=== PATIENT | female | born 1975 | race African-American/Black ===

== ENCOUNTER 2017-01-07 20:49 | Emergency (ER) | payer OTHER, MEDICAID ==
[2017-01-07] MEDS ORDERED: ACETAMINOPHEN 325 MG TABLET PO ONE (21:53)
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
[2017-01-07 22:53] LABS: APPEARANCE,URINE CLEAR; BILIRUBIN,URINE NEGATIVE (NEGATIVE); GLUCOSE, URINE NEGATIVE (NEGATIVE); KETONES,URINE NEGATIVE (NEGATIVE); LEUKOCYTE ESTERASE,URINE NEGATIVE (NEGATIVE); NITRITE,URINE NEGATIVE (NEGATIVE); PROTEIN,URINE NEGATIVE (NEGATIVE); URINE SPECIFIC GRAVITY 1.003; UROBILINOGEN,URINE NEGATIVE mg/dL (<2.0)
[2017-01-07] MEDS ORDERED: CYCLOBENZAPRINE HCL 10 MG TABLET PO ONE (23:59)
[2017-01-08 00:14] VITALS: BP 122/59
== END 2017-01-08 00:15 | disposition home or self-care (01) ==
LOC: ER 20:49
DX: M54.5 Low back pain (principal); O26.892 Other specified pregnancy related conditions, second trimester; Z3A.22 22 weeks gestation of pregnancy
CPT/HCPCS: 81001; 99283

== ENCOUNTER 2017-04-01 15:26 | Outpatient (CLI) | payer OTHER ==
[2017-04-01 16:41] LABS: APPEARANCE,URINE CLOUDY; BILIRUBIN,URINE NEGATIVE (NEGATIVE); GLUCOSE, URINE NEGATIVE (NEGATIVE); KETONES,URINE NEGATIVE (NEGATIVE); LEUKOCYTE ESTERASE,URINE NEGATIVE (NEGATIVE); NITRITE,URINE NEGATIVE (NEGATIVE); PROTEIN,URINE NEGATIVE (NEGATIVE)
[2017-04-01 16:59] LABS: URINE BARBITURATES SCREEN NEGATIVE; URINE METHADONE SCREEN NEGATIVE; URINE OPIATES LOW NEGATIVE; URINE PHENCYCLIDINE SCREEN NEGATIVE
--- NOTE | 2017-04-01 17:13 | Non Stress Test Report ---
Non Stress Test Datetime Report Generated by CPN: 04/01/2017 17:12 DEMOGRAPHIC EGA NST: 34.1 INDICATION Indication for Study: Ordered by Provider MONITORING Monitor Explained: Monitor Explained; Test Explained; Patient Verbalized Understanding Time on Monitor: 04/01/2017 15:48 Time off Monitor: 04/01/2017 17:02 NST Duration: 74 NST INTERVENTIONS NST Interventions: PO Hydration; Reposition Patient Physician Notified NST: Dr Garner BABY A: [id number] BABY A Movement : Present Contraction Frequency : irregular FHR Baseline : 140 Accelerations : 15X15 Decelerations : None Variability : Moderate 6-25bpm NST Review: Meets Criteria for Reactive NST NST Review and Verified By : CHERYL Littlejohn Results: Reactive NST REPORT Report Trigger: Send Report
== END 2017-04-01 17:10 | disposition home or self-care (01) ==
LOC: LC 15:26
PROVIDERS: ATTEND Student in an Organized Health Care Education/Training Program
PROC: 4A1HXCZ Monitoring of Products of Conception, Cardiac Rate, External Approach (ICD-10-PCS; principal; 2017-04-01)
DX: O21.0 Mild hyperemesis gravidarum (principal); Z3A.34 34 weeks gestation of pregnancy
CPT/HCPCS: 59025; 81001; 80307; G0480 ×2

== ENCOUNTER 2017-04-06 11:49 | Outpatient (CLI) | payer OTHER, MEDICAID | END 2017-04-06 12:46 | disposition home or self-care (01) | LOC: LC 11:49 | PROVIDERS: ATTEND Obstetrics & Gynecology | PROC: 4A1HXCZ Monitoring of Products of Conception, Cardiac Rate, External Approach (ICD-10-PCS; principal; 2017-04-06) | DX: O21.0 Mild hyperemesis gravidarum (principal); Z3A.34 34 weeks gestation of pregnancy | CPT/HCPCS: 59025 ==

== ENCOUNTER 2017-04-13 09:48 | Outpatient (CLI) | payer OTHER, MEDICAID ==
--- NOTE | 2017-04-13 10:05 | Non Stress Test Report ---
Non Stress Test Datetime Report Generated by CPN: 04/13/2017 10:04 DEMOGRAPHIC EGA NST: 34.6 INDICATION Indication for Study: Ordered by Provider; Other Indication for Study (NST) Other: AMA MONITORING Monitor Explained: Monitor Explained; Test Explained; Patient Verbalized Understanding Time on Monitor: 04/06/2017 12:10 Time off Monitor: 04/06/2017 12:33 NST Duration: 23 NST INTERVENTIONS NST Interventions: PO Hydration; Reposition Patient Physician Notified NST: Dr Ed BABY A: [id number] BABY A Movement : Present Contraction Frequency : none FHR Baseline : 135 Accelerations : 15X15 Decelerations : None Variability : Moderate 6-25bpm NST Review: Meets Criteria for Reactive NST NST Review and Verified By : V Monk RN NST Results: Reactive NST REPORT Report Trigger: Send Report
== END 2017-04-13 10:49 | disposition home or self-care (01) ==
LOC: LC 09:48
PROVIDERS: ATTEND Obstetrics & Gynecology
PROC: 4A1HXCZ Monitoring of Products of Conception, Cardiac Rate, External Approach (ICD-10-PCS; principal; 2017-04-13)
DX: O09.523 Supervision of elderly multigravida, third trimester (principal); Z3A.34 34 weeks gestation of pregnancy
CPT/HCPCS: 59025

== ENCOUNTER 2017-04-15 05:25 | Outpatient (CLI) | payer OTHER, MEDICAID ==
[2017-04-15 07:04] LABS: APPEARANCE,URINE CLEAR; BILIRUBIN,URINE NEGATIVE (NEGATIVE); GLUCOSE, URINE NEGATIVE (NEGATIVE); KETONES,URINE NEGATIVE (NEGATIVE); LEUKOCYTE ESTERASE,URINE NEGATIVE (NEGATIVE); NITRITE,URINE NEGATIVE (NEGATIVE); PROTEIN,URINE NEGATIVE (NEGATIVE)
[2017-04-15 07:18] LABS: URINE BARBITURATES SCREEN NEGATIVE; URINE METHADONE SCREEN NEGATIVE; URINE OPIATES LOW NEGATIVE; URINE PHENCYCLIDINE SCREEN NEGATIVE
[2017-04-15] MEDS ORDERED: HYDROXYZINE PAMOATE 50 MG CAPSULE ONE (07:55)
== END 2017-04-15 08:00 | disposition home or self-care (01) ==
LOC: LC 05:25
PROVIDERS: ATTEND Student in an Organized Health Care Education/Training Program
PROC: 4A1HXCZ Monitoring of Products of Conception, Cardiac Rate, External Approach (ICD-10-PCS; principal; 2017-04-15)
DX: O09.523 Supervision of elderly multigravida, third trimester (principal); Z3A.35 35 weeks gestation of pregnancy
CPT/HCPCS: 59025; 80307; 81001

== ENCOUNTER 2017-04-22 05:21 | Inpatient (IN) | payer OTHER, MEDICAID ==
[2017-04-22] MEDS ORDERED: MISOPROSTOL 0.2 MG TABLET ONE (05:30)
[2017-04-22] MEDS ORDERED: OXYTOCIN/NORMAL SALINE 20 UNIT/1,000 ML RTUINJ ONE (05:30)
[2017-04-22] MEDS ORDERED: LIDOCAINE 1% INJ-PF (10 MG/ML) 30 ML SDV ONE (05:30)
[2017-04-22] MEDS ORDERED: BENZOCAINE/MENTHOL AEROSOL SPRAY 56 ML TOP PRN (06:01)
[2017-04-22] MEDS ORDERED: MEASLES,MUMPS&RUBELLA VACC/PF 0.5 ML VIAL SUBCUT PRN (06:01)
[2017-04-22] MEDS ORDERED: DIBUCAINE 1% OINTMENT 28 GM TP PRN (06:01)
[2017-04-22] MEDS ORDERED: OXYTOCIN/NORMAL SALINE 20 UNIT/1,000 ML RTUINJ IV PRN (06:01)
[2017-04-22] MEDS ORDERED: ZOLPIDEM TARTRATE 5 MG TABLET PO PRN (06:01)
[2017-04-22] MEDS ORDERED: DIPH/PERTUSS(ACELL)/TETANUS VAC/PF 0.5 ML SYR (>=10YO) IM PRN (06:01)
[2017-04-22 06:19] LABS: ABSOLUTE BASOPHILS # (AUTO) 0.1 10^3/uL (0.0-0.2); ABSOLUTE LYMPHOCYTES (AUTO) 1.4 10^3/uL (0.5-4.7); ABSOLUTE MONOCYTES (AUTO) 0.5 10^3/uL (0.1-1.4); ABSOLUTE NEUT (AUTO) 6.4 10^3/uL (1.7-8.2); EOSINOPHILS % (AUTO) 0.2 % (0-6); HEMATOCRIT 33.6 % (36.0-47.0); HEMOGLOBIN 11.6 g/dL (12.0-15.5); HGB HCT DIFFERENCE 1.2; LYMPHOCYTES % (AUTO) 16.7 % (13-45); MEAN CORPUSCULAR HEMOGLOBIN 32.9 pg (27.0-33.4); MEAN CORPUSCULAR HGB CONC 34.7 g/dL (32.0-36.0); MEAN CORPUSCULAR VOLUME 95 fl (80-97); MONOCYTES % (AUTO) 6.1 % (3-13); RED BLOOD COUNT 3.54 10^6/uL (3.72-5.28); RED CELL DISTRIBUTION WIDTH 14.3 % (11.5-14.0); WHITE BLOOD COUNT 8.5 10^3/uL (4.0-10.5)
--- NOTE | 2017-04-22 07:14 | Delivery Summary ---
Del Sum A-C Datetime Report Generated by CPN: 04/22/2017 07:13 DELIVERY PERSONNEL DELIVERY PERSONNEL: [id number] Delivery Doctor:: Jessenia Rowley Nurse Is Manager Certified:: Ellie Dodd CNM Labor and Delivery Nurse:: Susan Mancia RNfiltering machine tender helper Nurse:: Chantelle Jane RN Nursery Nurse:: Elif Lopez RN Sole Leather Cutting Machine Operator/MILITARY TECHNOLOGY SPECIALIST: Bertha Newsome, ST MATERNAL INFORMATION Delivery Anesthesia: None Medications After Delivery: Pitocin Bolus-Please Comment Estimated Blood Loss (ml): 200 Maternal Complications: Precipitous Labor (<3hrs); Other Other Maternal Complications: AMA Provider Comments: Nurse control of precipitious delivery, Infant with spotaneous cry and respirations to warmer for peds evaluations, placenta delivered, appears intact 3 VC vagina and perinuem inspected, no laterations noted. Hemostatasis acheived with external fundal massge and IV pitocin, routine pp care. LABOR SUMMARY EDC: 05/12/2017 00:00 No. Babies in Womb: 1 Attempted: No Labor Anesthesia: None LABOR INFORMATION Reason for Induction: Not Applicable Onset of Labor: 04/22/2017 03:30 Complete Dilatation: 04/22/2017 05:23 Oxytocin: N/A Group B Beta Strep: Negative Antibiotics # of Doses: N/A Steroids Given: None Reason Steroids Not Administered: Not Applicable MEMBRANES Membranes Rupture Method: Spontaneous Rupture of Membranes: 04/22/2017 05:15 Length of Rupture (hr): 0.25 Amniotic Fluid Color: Clear Amniotic Fluid Amount: Moderate Amniotic Fluid Odor: Normal STAGES OF LABOR Stage 1 hr: 1 Stage 1 min: 53 Stage 2 hr: 0 Stage 2 min: 7 Stage 3 hr: 0 Stage 3 min: 5 Total Time in Labor hr: 2 Total Time in Labor min: 5 VAGINAL DELIVERY Episiotomy: None Laceration Extension: N/A Laceration Repair: Not Applicable Sponge Count Correct: N/A Sharps Count Correct: N/A CSECTION DELIVERY Primary Indication: N/A Secondary Indication: N/A CSection Incidence: N/A Labor: N/A Elective: N/A CSection Incision: N/A BABY A INFORMATION Delivery Date/Time: 04/22/2017 05:30 Method of Delivery: Vaginal Born in Route : No : N/A Forceps: N/A Vacuum Extraction: N/A Shoulder Dystocia : No PRESENTATION/POSITION BABY A Presentation: Cephalic Cephalic Presentation: Vertex Breech Presentation: N/A PLACENTA INFORMATION BABY A Placenta Delivery Time : 04/22/2017 05:35 Placenta Method of Delivery: Spontaneous Placenta Status: Delivered SCORES BABY A Heart Rate 1 min: >100 bpm Resp Effort 1 min: Slow, Irregular Reflex Irritability 1 min: Cough or Sneeze or Pulls Away Muscle Tone 1 min: Active Motion Color 1 min: Blue/Pale Resuscitation Effort 1 min: Tactile Stimulation SCORE 1 MIN: 7 Heart Rate 5 min: >100 bpm Resp Effort 5 min: Good Cry Reflex Irritability 5 min: Cough or Sneeze or Pulls Away Muscle Tone 5 min: Active Motion Color 5 min: Body [place], Extremities Blue SCORE 5 MIN: 9 INFORMATION BABY A Gestational Age at Delivery: 37.1 Gestational Status: Early Term- 37- 38.6 Weeks Outcome : Liveborn Condition : Stable Sex: Female WEIGHT/LENGTH BABY A Birthweight (gm): 2910 Weight (lb): 6 Weight (oz): 7 Length (in): 19.50 Length (cm): 49.53 CORD INFORMATION BABY A No. Cord Vessels: 3 Nuchal Cord : N/A Suction: None ASSESSMENT BABY A Infant Complications: None Physical Findings at Delivery: Within Normal Limits Skin to Skin: Yes Skin to Skin Time (min): 60 SIGNATURES Assignment: Jazmín Ward MD Signature: with User ID: Joy : with User ID: Joy
[2017-04-22] MEDS ORDERED: IBUPROFEN 800 MG TABLET ONE (07:43)
[2017-04-22] MEDS: IBUPROFEN 800 MG TABLET PO SCH ×2 (07:58→21:32)
--- NOTE | 2017-04-22 08:09 | Admission Physical ---
Datetime Report Generated by CPN: 04/22/2017 08:08 CURRENT ADMISSION Chief Complaint: Uterine Contractions Indication for Induction: Not Applicable Admit Plan: Admit to Unit; Initiate Labor Protocol ALLERGIES Medication Allergies: No Medication Allergies: No Known Allergies (04/06/2017) Medication Allergies: No Known Allergies (09/01/2012) Latex: No Latex Allergies Food Allergies: none Environmental Allergies: none OBSTETRICAL HISTORY EDC: 05/12/2017 00:00 : 4 Para: 3 Term: 3 : 0 SAB: 0 IAB: 0 Ectopic: 0 Livin Cesareans: 0 VBACs: 0 Multiple Births: 0 Gestational Diabetes: No Rh Sensitization: No Incompetent Cervix: No ARAM: No Infertility: No ART Treatment: No Uterine Anomaly: No IUGR: No Hx Previous C/S: No Macrosomia: No Hx Loss/Stillborn: No PIH: Yes Hx : No Placenta Previa/Abruption: No Depression/PP Depression: No PTL/PROM: No Post Hemorrhage: No Current Procedures: Ultrasound; NST Obstetrical History Comments: G1: 1994 G2: 1998 G3: 2008 G4: Current Pre-E SEE RECORDS Alcohol: No Marijuana : No Cocaine: No Other Illicit Drugs: No Cigarettes: Current Everyday Smoker. [id number] Cigarette Frequency: 5 - 10 per day Advised to Stop: Yes Cigarette Comments: Pack every 2-3 days MEDICAL HISTORY Diabetes: No Blood Transfusion: Yes Pulmonary Disease (Asthma, TB): No Breast Disease: No Hypertension: Yes Foster Care Social Worker Surgery: No Heart Disease: No Hosp/Surgery: Yes Autoimmune Disorder: No Anesthetic Complications: No Kidney Disease: No Abnormal Pap Smear: No Neuro/Epilepsy: No Psychiatric Disorders: No Other Medical Diseases: No Hepatitis/Liver Disease: No Significant Family History: No Varicosities/Phlebitis: No Trauma/Violence : No Thyroid Dysfunction: Yes Medical History Comments: Pre-E, abnormal thyroid labs with pin sized cyst, blood transfusion at 13 y/o, Exploratory abd surgery, R leg surgery INFECTIOUS HISTORY Gonorrhea: No Genital Herpes: No Chlamydia: No Tuberculosis: No Syphilis: No Hepatitis: No HIV/AIDS Exposure: No Rash or Viral Illness: No HPV: No PHYSICAL EXAM General: Normal HEENT: Normal Neurologic: Normal Thyroid: Deferred Heart: Normal Lungs: Normal Breast: Normal Back: Normal Abdomen: Normal Genitourinary Exam: Normal Extremities: Normal DTRs: Normal Pelvic Type: Adequate Vital Signs: Reviewed VAGINAL EXAM Dilatation: 10 Effacement: 100 Station: -3 MEMBRANES Membranes: Ruptured FETUS A EGA: 37.1 Admit Comment: presented to L and d active labor Delivery imminement Was planned deliver for iol gbs + anticipate PLANS FOR LABOR AND DELIVERY Labor and Delivery: None Pain Management: Medications; Local Feeding Preference: Formula Benefit of Breast Feed Discussed: Yes Circumcision: N/A INFORMED CONSENT Assignment: Jazmín aWrd MD Signature: with User ID: Joy : with User ID: Joy
--- NOTE | 2017-04-22 09:14 | ER Document Report ---
Doctor's Note Notes: 04/22/17 Patient is a 42-year-old female, , who is brought into the hospital and had a initial evaluation done in the emergency department for active labor. Patient at -1 station with spontaneous rupture of membranes. Patient is being currently treated this for preeclampsia and was scheduled for delivery later this week. Patient has 3 healthy children at home. Previous spontaneous vaginal deliveries. Patient was seen by labor and delivery nurse. Decided that the patient will be taken to labor and delivery. When we arrived in the room, patient felt a strong urge to push and had a precipitous spontaneous vaginal delivery of a baby girl. Initial Apgars 7 and 9. Placenta delivered soon after. Please see delivery note for full information. Placenta intact. 3 vessel cord. No tearing noted. Child taken to warmer. Ob intelligence operations present after delivery. Patient and appear well. Care turned over to intelligence operations and Dr. Ward. Total time with patient 40 minutes. Procedures - Additional Procedures Spontaneous vaginal delivery Additional Procedures: Other - Please see full delivery note from L&D.
[2017-04-22] MEDS: SENNOSIDES/DOCUSATE 8.6-50 MG 1 EACH TABLET PO SCH (09:20)
[2017-04-22] MEDS: DOCUSATE SODIUM 100 MG CAPSULE PO SCH ×2 (09:20→17:16)
[2017-04-22] MEDS: PRENATAL VITAMIN W-O CA NO5/FE FUMARATE/FA CAPSULE PO SCH (09:20)
[2017-04-22] MEDS: FERROUS SULFATE 325 MG TABLET PO SCH ×2 (09:20→17:16)
[2017-04-22] MEDS: ACETAMINOPHEN WITH CODEINE #3 TABLET PO PRN ×2 (17:15→22:29)
[2017-04-23] MEDS: IBUPROFEN 800 MG TABLET PO SCH ×3 (05:08→21:29)
[2017-04-23 06:58] LABS: HEMOGLOBIN 10.4 g/dL (12.0-15.5); HGB HCT DIFFERENCE 0.2; MEAN CORPUSCULAR HEMOGLOBIN 31.7 pg (27.0-33.4); MEAN CORPUSCULAR HGB CONC 33.4 g/dL (32.0-36.0); MEAN CORPUSCULAR VOLUME 95 fl (80-97); RED BLOOD COUNT 3.27 10^6/uL (3.72-5.28); RED CELL DISTRIBUTION WIDTH 14.4 % (11.5-14.0); WHITE BLOOD COUNT 7.9 10^3/uL (4.0-10.5)
[2017-04-23] MEDS: ACETAMINOPHEN WITH CODEINE #3 TABLET PO PRN ×2 (10:07→17:36)
[2017-04-23] MEDS: SENNOSIDES/DOCUSATE 8.6-50 MG 1 EACH TABLET PO SCH (10:08)
[2017-04-23] MEDS: DOCUSATE SODIUM 100 MG CAPSULE PO SCH ×2 (10:08→17:36)
[2017-04-23] MEDS: PRENATAL VITAMIN W-O CA NO5/FE FUMARATE/FA CAPSULE PO SCH (10:08)
[2017-04-23] MEDS: FERROUS SULFATE 325 MG TABLET PO SCH ×2 (10:08→17:36)
--- NOTE | 2017-04-23 11:11 | PDOC PROGRESS REPORT ---
Subjective-OB Subjective: Post Delivery Day:1 42 year old G4 now P4 s/p ppd 1. Ambulating and voiding without difficulty. Denies any needs at this time Physical Exam (OB) Vital Signs: Temp Pulse Resp BP Pulse Ox 97.7 F 67 18 135/88 H 100 04/23/17 03:56 04/23/17 03:56 04/23/17 03:56 04/23/17 03:56 04/23/17 03:56 Intake & Output 04/22/17 04/23/17 04/24/17 06:59 06:59 06:59 Intake Total 2130 Balance 2130 Weight 101.984 kg - General General Appearance: Appears well In distress: None - PIH/Pre-Eclampsia DTR's: 2 + Clonus: Negative Headache: Absent Epigastric Pain: No Visual Changes: No - Episiotomy/Laceration Site Condition: N/A - Lochia Lochia Amount: Scant < 10 ml Lochia Color: Rubra/Red - Abdomen Description: Soft Hernia Present: No Fundal Description: Firm, Midline Fundal Height: u/u - u/2 - Respiratory Respiratory Status: No respiratory distress - Extremities Upper extremity: Normal inspection Lower extremities: Normal inspection - Neurological Cognition: Normal Orientation: AAOx4 - Psychological Associated symptoms: Normal affect, Normal mood - bonding well with baby Objective-Diagnostic Laboratory: 04/23/17 06:45 04/23/17 06:45 WBC 7.9 RBC 3.27 L Hgb 10.4 L Hct 31.0 L MCV 95 MCH 31.7 MCHC 33.4 RDW 14.4 H Plt Count 255 Assessment and Plan(PN) - Assessment and Plan (1) Vaginal delivery Is this a current diagnosis for this admission?: Yes Plan: routine pp care (2) Chronic hypertension affecting Is this a current diagnosis for this admission?: Yes Plan: continue to observe for s/s of pre-e (3) Acute blood loss anemia Is this a current diagnosis for this admission?: Yes Plan: increase iron in diet and po FeSO4 - Time Spent with Patient Time with patient: Less than 15 minutes Medications reviewed and adjusted accordingly: Yes - Disposition Anticipated Discharge: Home Within: within 24 hours
[2017-04-24] MEDS: IBUPROFEN 800 MG TABLET PO SCH (05:42)
[2017-04-24] MEDS: ACETAMINOPHEN WITH CODEINE #3 TABLET PO PRN (08:48)
[2017-04-24] MEDS: DOCUSATE SODIUM 100 MG CAPSULE PO SCH (10:28)
[2017-04-24] MEDS: FERROUS SULFATE 325 MG TABLET PO SCH (10:28)
[2017-04-24] MEDS: PRENATAL VITAMIN W-O CA NO5/FE FUMARATE/FA CAPSULE PO SCH (10:28)
[2017-04-24] MEDS: SENNOSIDES/DOCUSATE 8.6-50 MG 1 EACH TABLET PO SCH (10:28)
--- NOTE | 2017-04-24 10:50 | PDOC PROGRESS REPORT ---
Subjective-OB Subjective: Post Delivery Day: 42 year old. Denies any needs at this time Doing well, OOB in room , hsb at BS, bottle feeding, no c/o Physical Exam (OB) Vital Signs: Temp Pulse Resp BP Pulse Ox 97.8 F 59 L 16 133/67 H 100 04/24/17 03:54 04/24/17 03:54 04/24/17 03:54 04/24/17 03:54 04/24/17 03:54 Intake & Output 04/23/17 04/24/17 04/25/17 06:59 06:59 06:59 Intake Total 2130 Balance 2130 Weight 101.984 kg - PIH/Pre-Eclampsia DTR's: 2 + Clonus: Negative Headache: Absent Epigastric Pain: No Visual Changes: No - Lochia Lochia Amount: Small 10-25 ml Lochia Color: Rubra/Red - Abdomen Description: Soft, Round Hernia Present: No Fundal Description: Firm, Midline Fundal Height: u/u - u/2 Objective-Diagnostic Laboratory: 04/23/17 06:45 Assessment and Plan(PN) - Assessment and Plan (1) AMA (advanced maternal age) multigravida 35+ Qualifiers: Trimester: first trimester Qualified Code(s): O09.521 - Supervision of elderly multigravida, first trimester Is this a current diagnosis for this admission?: Yes (2) Vaginal delivery Is this a current diagnosis for this admission?: Yes (3) Chronic hypertension affecting Is this a current diagnosis for this admission?: Yes (4) Acute blood loss anemia Is this a current diagnosis for this admission?: Yes - Time Spent with Patient Time with patient: Less than 15 minutes Smoking Education Provided: Over 3 minutes Medications reviewed and adjusted accordingly: Yes - Disposition Anticipated Discharge: Home Within: within 24 hours, Other - home today, desires PP BTL
--- NOTE | 2017-04-24 10:55 | PDOC DISCHARGE SUMMARY ---
Final Diagnosis Discharge Date: 04/24/17 - Final Diagnosis (1) AMA (advanced maternal age) multigravida 35+ Is this a current diagnosis for this admission?: Yes (2) Vaginal delivery Is this a current diagnosis for this admission?: Yes (3) Chronic hypertension affecting Is this a current diagnosis for this admission?: Yes (4) Acute blood loss anemia Is this a current diagnosis for this admission?: Yes Discharge Data - Discharge Medication Home Medications: Iron,Carbonyl/Vit C/Vit B12/FA [Iron 100 Plus Tablet] 1 each PO BID 04/01/17 Vit/Iron Fumarate/FA [ Tablet] 1 each PO DAILY 04/01/17 Gestational Age: 37.1 Reason(s) for Admission: Onset of Labor Admission Note: AMA, chronic hypertension Procedures: NST, Ultrasound Intrapartum Procedure(s): Spontaneous Vaginal Delivery - [place] Data Baby 1 Female at 1 minute: 7 at 5 minutes: 9 Weight: 2.92 kg Home with Mother: Yes Complications: No - Diagnosis Test Laboratory: Temp Pulse Resp BP Pulse Ox 97.8 F 59 L 16 133/67 H 100 04/24/17 03:54 04/24/17 03:54 04/24/17 03:54 04/24/17 03:54 04/24/17 03:54 04/22/17 04/23/17 06:02 06:45 RBC 3.54 L 3.27 L Hgb 11.6 L 10.4 L Hct 33.6 L 31.0 L - Discharge information/Instructions Discharge Activity: Activity As Tolerated, No Lifting Over 10 Pounds, No Lifting /Push/Pulling Discharge Diet: As Tolerated, Regular Disposition: HOME, SELF-CARE Follow up with: [facility] in: 1, Weeks
[2017-04-24 11:08] VITALS: BP 132/77
== END 2017-04-24 11:50 | disposition home or self-care (01) | DRG 774 ==
LOC: EDSTATUS 05:23 → LC 05:24 → LR 05:38 → 2N 08:01
PROVIDERS: ADMIT Obstetrics & Gynecology; ATTEND Obstetrics & Gynecology
PROC: 10E0XZZ Delivery of Products of Conception, External Approach (ICD-10-PCS; principal; 2017-04-22)
DX: O11.4 Pre-existing hypertension with pre-eclampsia, complicating childbirth (principal); O10.92 Unspecified pre-existing hypertension complicating childbirth; D62 Acute posthemorrhagic anemia; O62.3 Precipitate labor; O99.824 Streptococcus B carrier state complicating childbirth; O99.02 Anemia complicating childbirth; O99.334 Smoking (tobacco) complicating childbirth; F17.210 Nicotine dependence, cigarettes, uncomplicated; Z3A.37 37 weeks gestation of pregnancy; Z37.0 Single live birth
CPT/HCPCS: 36415; 85025; 85027; 86592; 86850; 86900; 86901; J2590; J3490

== ENCOUNTER 2017-07-26 05:36 | Day surgery (SDC) | payer OTHER, MEDICAID ==
[2017-07-25 12:26] LABS: APPEARANCE,URINE CLEAR; BILIRUBIN,URINE NEGATIVE (NEGATIVE); COLOR,URINE YELLOW; GLUCOSE, URINE NEGATIVE (NEGATIVE); KETONES,URINE NEGATIVE (NEGATIVE); LEUKOCYTE ESTERASE,URINE NEGATIVE (NEGATIVE); NITRITE,URINE NEGATIVE (NEGATIVE); PROTEIN,URINE NEGATIVE (NEGATIVE); URINE SPECIFIC GRAVITY 1.006; UROBILINOGEN,URINE NEGATIVE mg/dL (<2.0)
[2017-07-25 12:31] LABS: HEMATOCRIT 39.7 % (36.0-47.0); HEMOGLOBIN 13.4 g/dL (12.0-15.5); MEAN CORPUSCULAR HEMOGLOBIN 30.6 pg (27.0-33.4); MEAN CORPUSCULAR HGB CONC 33.7 g/dL (32.0-36.0); MEAN CORPUSCULAR VOLUME 91 fl (80-97); PLATELET COUNT 352 10^3/uL (150-450); RED BLOOD COUNT 4.38 10^6/uL (3.72-5.28); RED CELL DISTRIBUTION WIDTH 14.2 % (11.5-14.0); WHITE BLOOD COUNT 6.8 10^3/uL (4.0-10.5)
[~2017-07-26 05:36] MED LIST: LACTATED RINGERS 1000 ML IV PRN; LIDOCAINE 0.5% INJ-PF (5 MG/ML) 50 ML SDV SUBCUT PRN
[2017-07-26] MEDS ORDERED: MIDAZOLAM 2 MG/2 ML INJ ONE (07:09)
[2017-07-26] MEDS ORDERED: HYDROMORPHONE HCL INJ/PF 2 MG/ML AMPULE ONE (07:10)
[2017-07-26] MEDS ORDERED: PROPOFOL INJ 200 MG/20 ML VIAL IV ONE (07:10)
[2017-07-26] MEDS ORDERED: ACETAMINOPHEN 100 ML IV ONE (07:10)
[2017-07-26] MEDS ORDERED: METOCLOPRAMIDE HCL INJ/PF 10 MG/2 ML SDV ONE (08:04)
[2017-07-26] MEDS ORDERED: ROCURONIUM BROMIDE INJ 50 MG/5 ML VIAL IV ONE (08:04)
[2017-07-26] MEDS ORDERED: GLYCOPYRROLATE INJ 0.4 MG/2 ML VIAL ONE (08:04)
[2017-07-26] MEDS ORDERED: DEXAMETHASONE SOD PHOSPHATE INJ 4 MG/1 ML VIAL ONE (08:04)
[2017-07-26] MEDS ORDERED: SUCCINYLCHOLINE CHLORIDE INJ 200 MG/10 ML VIAL ONE (08:04)
[2017-07-26] MEDS ORDERED: ONDANSETRON HCL INJ/PF 4 MG/2 ML SDV ONE (08:04)
[2017-07-26] MEDS ORDERED: NEOSTIGMINE METHYLSULFATE 10 MG/10 ML VIAL ONE (08:04)
[2017-07-26] MEDS ORDERED: KETOROLAC TROMETHAMINE INJ/PF 30 MG/1 ML SDV ONE (08:53)
[2017-07-26] MEDS ORDERED: MORPHINE SULFATE 10 MG/ML INJ IM PRN (09:23)
[2017-07-26] MEDS ORDERED: IBUPROFEN 800 MG TABLET PO PRN (09:24)
[2017-07-26] MEDS ORDERED: OXYCODONE-ACETAMINOPHEN 5-325 MG TABLET PO PRN ×2 (09:24→09:25)
[2017-07-26] MEDS ORDERED: DIPHENHYDRAMINE HCL 50 MG/ML VIAL IV PRN (09:26)
[2017-07-26] MEDS ORDERED: ONDANSETRON HCL INJ/PF 4 MG/2 ML SDV IV PRN (09:26)
[2017-07-26] MEDS ORDERED: PROMETHAZINE HCL INJ 25 MG/1 ML VIAL IV PRN ×2 (09:26)
[2017-07-26 10:48] VITALS: BP 116/79
--- NOTE | 2017-08-14 13:58 | OPERATIVE REPORT E ---
Operative Report NAME: TONI RAYO : 1975 AGE: 42Y DATE OF SURGERY: 07/26/2017 ROOM: PREOPERATIVE DIAGNOSIS: Undesired fertility. POSTOPERATIVE DIAGNOSIS: Undesired fertility. OPERATION: Bilateral salpingectomy. SURGEON: TITI AMAYA M.D. ANESTHESIOLOGIST: Dr. Russ with general. FINDINGS: Normal uterus, tubes, and ovaries. PROCEDURE IN DETAIL: The patient was taken to the operating room, prepared and draped in a normal sterile fashion in the dorsal lithotomy position. Under sterile conditions, an in-and-out catheterization was performed of approximately 20 mL of clear urine. A sterile speculum was placed into the vagina and the single-toothed tenaculum grasped the anterior lip of the cervix and then a Hulka clamp was placed through the cervix for uterine manipulation. The speculum was then removed and the single-toothed tenaculum was removed without difficulty. Gloves were changed and attention was turned to the upper portion of the case where a supraumbilical skin incision was made and carried through to the underlying layer of fascia with a hemostat. The Veress needle was then inserted and the abdomen was inflated with approximately 2 L of CO2 gas. The Veress needle was then removed and the 5 mm trocar was placed through this incision. Peritoneal cavity placement was confirmed with the camera with the above findings noted. Patient was placed in steep Trendelenburg. Two 5 mm ports were then placed on either side of the umbilicus in the lower quadrants under direct visualization. A LigaSure was then introduced and beginning with the patient's left fallopian tube, this was transected using the LigaSure following the mesosalpinx to the uterine corpus. The fallopian tube was then grasped and removed through the assistance port without difficulty. This was repeated on the patient's right fallopian tube without difficulty. The lower ports were then removed under direct visualization with good hemostasis noted. The abdomen was then deflated through the umbilical port and this was also removed without difficulty. The skin sites at all 3 sites were closed with 4-0 Vicryl. Patient tolerated procedure well. Sponge, lap, and needle counts were correct x2. Patient was taken to recovery in stable condition. DICTATING PHYSICIAN: TITI AMAYA M.D. [id number] PHY#: [id number] ID: [id number] JOB#: [id number] ACCT: [id number] cc:TITI AMAYA M.D. >
== END 2017-07-26 10:30 | disposition home or self-care (01) ==
LOC: OROUT 05:36
PROVIDERS: ATTEND Obstetrics & Gynecology
PROC: 0UT74ZZ Resection of Bilateral Fallopian Tubes, Percutaneous Endoscopic Approach (ICD-10-PCS; principal; 2017-07-26 07:30)
DX: Z30.2 Encounter for sterilization (principal); N83.8 Other noninflammatory disorders of ovary, fallopian tube and broad ligament; F17.210 Nicotine dependence, cigarettes, uncomplicated; A60.00 Herpesviral infection of urogenital system, unspecified; E04.1 Nontoxic single thyroid nodule; I10 Essential (primary) hypertension; G40.909 Epilepsy, unspecified, not intractable, without status epilepticus; Z79.899 Other long term (current) drug therapy
CPT/HCPCS: 36415; 85027; 81025; 81001; 88302 ×2; 58661; J2250; J3490; J1100; J1885; J2765; J1170; J0330; J2405; J2704; J0131; 851

== ENCOUNTER 2018-11-23 10:48 | Emergency (ER) | payer MEDICAID, OTHER ==
[2018-11-23 10:54] VITALS: BP 130/78
--- NOTE | 2018-11-23 11:53 | RADIOLOGY REPORT (SQ) ---
EXAM DESCRIPTION: KNEE RIGHT 4 VIEWS COMPLETED DATE/TIME: 11/23/2018 11:42 am REASON FOR STUDY: knee pain COMPARISON: 2011 NUMBER OF VIEWS: Four views right knee. LIMITATIONS: None. FINDINGS: Prominent patellofemoral spurring. Mild spurring in the medial and lateral compartments w ithout significant joint space narrowing. No effusion. No fracture or bone lesion. OTHER: No other significant finding. IMPRESSION: Chronic appearing knee changes. No acute abnormality. TECHNICAL DOCUMENTATION: JOB ID: [id number] Reading location - IP/workstation name: [email or web address]
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
== END 2018-11-23 13:53 | disposition home or self-care (01) ==
LOC: ER 10:48
DX: S83.91XA Sprain of unspecified site of right knee, initial encounter (principal); M25.561 Pain in right knee; X50.0XXA Overexertion from strenuous movement or load, initial encounter; Y99.0 Civilian activity done for income or pay; H00.14 Chalazion left upper eyelid; F17.200 Nicotine dependence, unspecified, uncomplicated; I10 Essential (primary) hypertension
CPT/HCPCS: 99283; 73564; L1830